=== PATIENT | female | born 1970 | race Two or more races ===

== ENCOUNTER 2023-07-02 08:30 | Emergency (ER) | payer OTHER, SELFPAY ==
[2023-07-02 08:50] VITALS: BP 119/77; PULSE 76; RESP 16; TEMP 36.7; O2SAT 96; BMI 25.2
--- NOTE | 2023-07-02 09:09 | CT_ITS ---
The [address] [address] Patient Name: SERENE GUEVARA MRN: [id number] date: 1970 Sex: F Assigned Patient Location: ER Current Patient Location: ER Accession/Order Number: [id number] Exam Date: 07/02/2023 09:45 Report Date: 07/02/2023 10:53 At the request of: JENN PASTOR Procedure: CT abdomen pelvis wo con EXAM: CT abdomen pelvis wo con HISTORY: left lower quadrant pain COMPARISON: None. TECHNIQUE: CT abdomen pelvis without contrast. Axial scans with reformatted coronal and sagittal images. Individualized dose reduction views for this exam. FINDINGS: Lower chest: No acute process, no consolidation or pleural effusion. Linear density right lung base most consistent with atelectasis/scarring. ABDOMEN: Noncontrast appearance liver unremarkable without focal lesion. Previous cholecystectomy. No evidence of biliary dilatation. Normal-appearing adrenal glands, pancreas, spleen. No ascites or free fluid. No adenopathy. Normal size aorta. Kidneys without exophytic mass or hydronephrosis. Normal ureters. Parenchymal calcification right kidney. No acute inflammation or abnormality in the left lower quadrant or left flank. Moderate gas and stool seen throughout the colon prominent in the sigmoid colon with rectal distention approximately 5 cm. No perirectal fluid or inflammation. Prominent gas and fluid in the stomach, prominent gas hepatic flexure of the colon are nonspecific. Small caliber distal descending and sigmoid colon with limited stool, Difficult to evaluate for wall thickening. No pericolonic inflammation or fluid noted. No significant diverticular disease. Pelvis: No mass or adenopathy or free fluid. Prominent stool distal sigmoid colon and rectum with rectal distention is noted above. No pericolonic fluid or inflammation. No uterine or adnexal pathology. Small amount of fluid in the bladder. MUSCULOSKELETAL: No focal bone lesion or fracture. No abdominal wall or inguinal hernia. CT/CT abdomen pelvis wo con IMPRESSION: 1. No acute abnormality left flank or left lower quadrant. 2. Large amount of stool distal sigmoid colon and rectum with rectal distention approximate 5 cm. No perirectal fluid or inflammation. 3. Diminished caliber of the proximal and mid sigmoid colon, assessment for wall thickening limited in these areas. No adjacent fluid or inflammation. 4. Nonspecific prominent fluid and gas in the stomach, prominent gas hepatic flexure of the colon. No findings suggesting obstruction. 5. No ascites or free fluid or inflammation noted. Electronically authenticated by: SOLITARIO MOSS Date: 07/02/2023 10:53
--- NOTE | 2023-07-02 09:22 | ED_ITS ---
HPI - Abdominal Pain General Chief Complaint: Abdominal Pain Stated Complaint: LT LOWER QUADRANT PAIN NAUSEA Time Seen by Provider: 07/02/23 08:59 Source: patient Mode of arrival: walk-in Limitations: no limitations History of Present Illness HPI narrative: The patient is coming to us with left lower quadrant abdominal pain that has been on and off since she have a history of ulcerative colitis. Patient mentioned that the pain is not radiating associated with some nausea. She also mentioned that she had some bloody stool over the last few days although the patient mentioned that she also have a history of uncontrolled ulcerative colitis with her being on prednisone. No fever no chills no other complaints. Patient requested morphine for pain Related Data Allergies Allergy/AdvReac Type Severity Reaction Status Date / Time ciprofloxacin Allergy Intermediate Verified 07/02/23 08:55 metoclopramide [From Reglan] Allergy Intermediate Verified 07/02/23 08:55 prochlorperazine Allergy Intermediate Verified 07/02/23 08:55 [From Compazine] dicyclomine [From Bentyl] AdvReac Intermediate Verified 07/02/23 08:55 diperodon AdvReac Intermediate Verified 07/02/23 08:55 diphenidol AdvReac Intermediate Verified 07/02/23 08:55 ketorolac [From Toradol] AdvReac Intermediate Verified 07/02/23 08:55 NSAIDS (Non-Steroidal AdvReac Intermediate Verified 07/02/23 08:55 Anti-Inflamma Review of Systems ROS Status of ROS 10 or more systems reviewed and unremark able except as noted in history and below Exam Narrative Exam Narrative: Nurses notes and vital signs reviewed and patient is not hypoxic. General: Well-appearing and in no apparent distress. Skin: Warm, dry, no pallor noted. No rash. Head: Normocephalic, atraumatic. Neck: Supple, non-tender. Eye: Pupils are equal, round and EOMI. No scleral icterus. Ears, Nose, Mouth, and Throat: TM are clear, no nasal mucosal hypertrophy. Oral mucosa is moist, no posterior oropharynx erythema, uvula is mid-line Cardiovascular: Regular Rate and Rhythm without murmur, gallop or rub. Respiratory: No accessory muscle use or respiratory distress. Lungs are clear to auscultation, no wheezing, rales or rhonchi Chest Wall: no tenderness Back: No midline thoracic or lumbar vertebral tenderness. No CVA tenderness Musculoskeletal: normal ROM, no calf or popliteal tenderness, no lower extremity edema/swelling GI: Abdomen is soft, non-distended. The patient have left lower quadrant tenderness on superficial palpation. Constitutional Vital Signs, click to edit/add: Last Vital Signs Temp 98.0 F 07/02/23 08:50 Pulse 76 07/02/23 08:50 Resp 16 07/02/23 08:50 BP 119/77 07/02/23 08:50 Pulse Ox 96 07/02/23 08:50 O2 Del Method Room Air 07/02/23 08:50 Course Vital Signs Vital signs: Vital Signs Temperature 98.0 F 07/02/23 08:50 Pulse Rate 76 07/02/23 08:50 Respiratory Rate 16 07/02/23 08:50 Blood Pressure 119/77 07/02/23 08:50 Pulse Oximetry 96 07/02/23 08:50 Oxygen Delivery Method Room Air 07/02/23 08:50 Temperature 98.0 F 07/02/23 08:50 Pulse Rate 76 07/02/23 08:50 Respiratory Rate 16 07/02/23 08:50 Blood Pressure 119/77 07/02/23 08:50 Pulse Oximetry 96 07/02/23 08:50 Oxygen Delivery Method Room Air 07/02/23 08:50 MDM - Abdominal Pain MDM Narrative Medical decision making narrative: Patient CBC and chemistry showed no acute pathology Opiate intake OARRS review showed that the patient takes tramadol for pain at home. The patient CAT scan shows constipation with no other significant pathology Patient feeling much better after being treated with morphine in the ER she was instructed that she need to start taking Dulcolax that she already have at home The patient is to follow up with primary care physician in next 2-3 days or to return to the emergency department should any of the signs or symptoms worsen or new symptoms develop. The patient agrees with the following Diagnosis and Treatment plan and the patient will be discharged home. Lab Data Labs: Lab Results 07/02/23 07/02/23 Range/Units 09:10 09:30 WBC 5.8 (4.0-11.0) 10^3/uL RBC 4.79 (4.20-5.40) 10^6/uL Hgb 13.7 (12.0-16.0) g/dL Hct 43.5 (36.0-48.0) % MCV 90.8 (81.0-99.0) fL MCH 28.6 (26.7-34.0) pg MCHC 31.5 (29.9-35.2) g/dL RDW 12.9 (11.0-15.0) % Plt Count 307 (150-450) 10^3/uL MPV 9.7 (9.5-13.5) fL Neut % (Auto) 53.9 (43.0-75.0) % Lymph % (Auto) 35.3 (20.5-60.0) % [place]ckenzie % (Auto) 8.2 (1.7-12.0) % Eos % (Auto) 1.9 (0.9-7.0) % Baso % (Auto) 0.5 (0.2-2.0) % Neut # (Auto) 3.1 (1.4-6.5) 10^3/uL Lymph # (Auto) 2.1 (1.2-3.8) 10^3/uL Mckenzie # (Auto) 0.5 (0.3-0.8) 10^3/uL Eos # (Auto) 0.1 (0.0-0.7) 10^3/uL Baso # (Auto) 0.0 (0.0-0.1) 10^3/uL Abs Immat Gran (auto) 0.01 (0.00-0.03) 10^3/uL Imm/Tot Granulo (auto) 0.2 (0.0-0.5) % Sodium 143 (136-145) mmol/L Potassium 3.7 (3.5-5.1) mmol/L Chloride 105 (98-107) mmol/L Carbon Dioxide 26.5 (21.0-32.0) mmol/L Anion Gap 15.2 BUN 9.0 (7.0-18.0) mg/dL Creatinine 0.76 (0.55-1.02) mg/dL Est GFR ( Amer) >60 (>=60) Est GFR (Non-Af Amer) >60 (>=60) BUN/Creatinine Ratio 11.8 Glucose 92 (74-106) mg/dL Calcium 9.1 (8.5-10.1) mg/dL Total Bilirubin 0.3 (0.2-1.0) mg/dL AST 22 (15-37) U/L ALT 37 (14-59) U/L Alkaline Phosphatase 78 (46-116) U/L Total Protein 7.4 (6.4-8.2) g/dL Albumin 3.8 (3.4-5.0) g/dL Globulin 3.6 g/dL Albumin/Globulin Ratio 1.1 Urine Color Lt. yellow (YELLOW) Urine Clarity Clear (CLEAR) Urine pH 6.0 (5.0-9.0) Ur Specific [place] 1.010 (1.005-1.025) Urine Protein Negative (NEG/TRACE) mg/dL Urine Glucose (UA) Negative (NEGATIVE) mg/dL Urine Ketones Negative (NEGATIVE) mg/dL Urine Occult Blood Trace-i (NEGATIVE) Urine Nitrite Negative (NEGATIVE) Urine Bilirubin Negative (NEGATIVE) Urine Urobilinogen 0.2 (0.2-1.0) EU/dL Ur Leukocyte Esterase Negative (NEGATIVE) Urine RBC 0-2 (0-2) #/HPF Urine WBC None seen (NONE SEEN) #/HPF Ur Squamous Epith Cells Rare (NONE/RARE) #/LPF Urine Crystals None seen (None Seen) #/HPF Urine Bacteria Trace A (NONE SEEN) #/HPF Urine Casts None seen (NONE SEEN) #/LPF Urine Mucus None seen (NONE SEEN) Ur Culture Indicated? No Urine Opiates Screen Negative (NEGATIVE) Ur Buprenorphine Scrn Negative (NEGATIVE) Ur Oxycodone Screen Negative (NEGATIVE) Urine Methadone Screen Negative (NEGATIVE) Ur Barbiturates Screen Negative (NEGATIVE) U Tricyclic Antidepress Negative (NEGATIVE) Ur Phencyclidine Scrn Negative (NEGATIVE) Ur Amphetamines Screen Negative (NEGATIVE) U Methamphetamines Scrn Negative (NEGATIVE) U Benzodiazepines Scrn Negative (NEGATIVE) Urine Cocaine Screen Negative (NEGATIVE) U Cannabinoids Screen Negative (NEGATIVE) Discharge Plan Discharge Stand Alone Forms: Portal Instructions Chief Complaint: Abdominal Pain Clinical Impression: Constipation Qualifiers: Constipation type: other constipation type Qualified Code(s): K59.09 - Other constipation Patient Disposition: Home, Self-Care Time of Disposition Decision: 11:09 Condition: Good Print Language: Occitan Instructions: Constipation (DC) Referrals: Physician,Non-Staff, MD [Primary Care Provider] - 1 week
[2023-07-02 09:33] LABS: Basophils Percent Auto 0.5 % (0.2-2.0); Eosinophils Absolute Auto 0.1 10^3/uL (0.0-0.7); Eosinophils Percent Auto 1.9 % (0.9-7.0); Hematocrit 43.5 % (36.0-48.0); Hemoglobin 13.7 g/dL (12.0-16.0); Immature Granulocytes Abs Auto 0.01 10^3/uL (0.00-0.03); Immature Granulocytes Pct Auto 0.2 % (0.0-0.5); Lymphocytes Absolute Auto 2.1 10^3/uL (1.2-3.8); Lymphocytes Percent Auto 35.3 % (20.5-60.0); Mean Corpuscular HGB Conc 31.5 g/dL (29.9-35.2); Mean Corpuscular Hemoglobin 28.6 pg (26.7-34.0); Mean Corpuscular Volume 90.8 fL (81.0-99.0); Mean Platelet Volume 9.7 fL (9.5-13.5); Monocytes Absolute Auto 0.5 10^3/uL (0.3-0.8); Monocytes Percent Auto 8.2 % (1.7-12.0); Neutrophils Absolute Auto 3.1 10^3/uL (1.4-6.5); Neutrophils Percent Auto 53.9 % (43.0-75.0); Platelet Count 307 10^3/uL (150-450); Red Blood Count 4.79 10^6/uL (4.20-5.40); Red Cell Distribution Width 12.9 % (11.0-15.0); White Blood Count 5.8 10^3/uL (4.0-11.0)
[2023-07-02] MEDS: MORPHINE SULFATE 2 MG/ML SYRINGE 1 MG IV (09:36)
[2023-07-02] MEDS: ONDANSETRON PF 4 MG/2 ML VIAL IV (09:36)
[2023-07-02] MEDS: 0.9 % SODIUM CHLORIDE 1,000 ML 1000 ML IV (09:38)
[2023-07-02 09:43] LABS: Bilirubin Urine NEGATIVE (NEGATIVE); Blood Urine TRACE-I (NEGATIVE); Clarity Urine CLEAR (CLEAR); Color Urine LT. YELLOW (YELLOW); Glucose Urine UA NEGATIVE (NEGATIVE); Ketones Urine NEGATIVE (NEGATIVE); Leukocyte Esterase Urine NEGATIVE (NEGATIVE); Nitrite Urine NEGATIVE (NEGATIVE); Protein Urine NEGATIVE (NEG/TRACE); Urobilinogen Urine 0.2 EU/dL (0.2-1.0)
[2023-07-02 09:44] LABS: Urine Microscopic Indicated YES
[2023-07-02 09:48] LABS: Alanine Aminotransferase 37 U/L (14-59); Albumin Globulin Ratio 1.1; Albumin Level 3.8 g/dL (3.4-5.0); Alkaline Phosphatase 78 U/L (46-116); Anion Gap 15.2; Aspartate Amino Transferase 22 U/L (15-37); BUN Creatinine Ratio 11.8; Bilirubin Total 0.3 mg/dL (0.2-1.0); Calcium 9.1 mg/dL (8.5-10.1); Carbon Dioxide 26.5 mmol/L (21.0-32.0); Chloride 105 mmol/L (98-107); Estimated GFR (African America >60 (>=60); Estimated GFR (Non-African Ame >60 (>=60); Globulin 3.6 g/dL; Glucose 92 mg/dL (74-106); Potassium 3.7 mmol/L (3.5-5.1); Sodium 143 mmol/L (136-145); Total Protein 7.4 g/dL (6.4-8.2)
[2023-07-02 09:54] LABS: Amphetamine Screen Urine NEGATIVE (NEGATIVE); Barbiturates Screen Urine NEGATIVE (NEGATIVE); Benzodiazepines Screen Urine NEGATIVE (NEGATIVE); Buprenorphine Screen Urine NEGATIVE (NEGATIVE); Cannabinoid Screen Urine NEGATIVE (NEGATIVE); Cocaine Screen Urine NEGATIVE (NEGATIVE); Methadone Screen Urine NEGATIVE (NEGATIVE); Methamphetamines Screen Urine NEGATIVE (NEGATIVE); Opiate Screen Urine NEGATIVE (NEGATIVE); Oxycodone Screen Urine NEGATIVE (NEGATIVE); Phencyclidine Screen Urine NEGATIVE (NEGATIVE); Tricyclic Antidepressant Urine NEGATIVE (NEGATIVE)
--- NOTE | 2023-07-02 10:00 | PC.NURSE ---
LLQ since yesterday with bloody stools and diarrhea. Pt admits to having abd pain x1 year. Urine sample and labs collected initially. Pt persistent on asking for pain medication multiple times. Dr Tammy garnett. Thai changed.
[2023-07-02 10:05] LABS: RBC Urine 0-2 #/HPF (0-2); WBC Urine NONE SEEN #/HPF (NONE SEEN)
[2023-07-02 10:06] LABS: Bacteria Urine TRACE #/HPF (NONE SEEN); Cast Seen? NONE SEEN #/LPF (NONE SEEN); Crystals Seen? None Seen #/HPF (None Seen); Mucus Urine NONE SEEN (NONE SEEN); Squamous Epithelial Cell Urine RARE #/LPF (NONE/RARE); Urine Culture Indicated NO
== END 2023-07-02 11:21 | disposition home or self-care (01) ==
PROVIDERS: Emergency Provider Emergency Medicine
DX: K59.09 Other constipation (principal); K51.90 Ulcerative colitis, unspecified, without complications
CPT/HCPCS: 36415; 74176; 80053; 80307; 81001; 85025; 96374; 96375; 99284